=== PATIENT | male | born 1995 | race Caucasian/White ===

== ENCOUNTER 2021-03-19 17:13 | Emergency (ER) | payer OTHER ==
[~2021-03-19] VITALS: Ht 193 cm; Wt 97.7 kg
[2021-03-19 17:13] VITALS: BP 145/68
[2021-03-19] MEDS ORDERED: [UNRECOGNIZED DRUG - CODE] PO (17:22)
--- NOTE | 2021-03-19 18:59 | REPVR ---
PROCEDURE INFORMATION: Exam: CT Head Without Contrast Exam date and time: 03/19/2021 6:18 PM Age: 25 years old Clinical indication: Injury or trauma; Fall; Blunt trauma (contusions or hematomas) TECHNIQUE: Imaging protocol: Computed tomography of the head without contrast. Radiation optimization: All CT scans at this facility use at least one of these dose optimization techniques: automated exposure control; mA and/or kV adjustment per patient size (includes targeted exams where dose is matched to clinical indication); or iterative reconstruction. COMPARISON: No relevant prior studies available. FINDINGS: Brain: Normal. No hemorrhage. Unremarkable white matter. No mass effect. Cerebral ventricles: No ventriculomegaly. Bones/joints: No skull fracture. Paranasal sinuses: Visualized sinuses are unremarkable. No fluid levels. Mastoid air cells: Visualized mastoid air cells are well aerated. Soft tissues: Soft tissue laceration right parietal region. IMPRESSION: No acute intracranial findings. Electronically signed by: Isaiah Gonzáles On 03/19/2021 18:58:43 PM
== END 2021-03-19 20:28 | disposition home or self-care (01) ==
LOC: M ED 17:13
DX: G44.319 Acute post-traumatic headache, not intractable (principal)

== ENCOUNTER 2021-03-25 14:28 | Emergency (ER) | payer OTHER ==
[~2021-03-25] VITALS: Ht 193 cm; Wt 98.7 kg
[~2021-03-25 14:28] MED LIST: [UNRECOGNIZED DRUG - CODE] PO
[2021-03-25 17:13] VITALS: BP 140/77
== END 2021-03-25 17:14 | disposition home or self-care (01) ==
LOC: M ED 14:28
DX: Z48.02 Encounter for removal of sutures (principal)